=== PATIENT | male | born 1985 | race Caucasian/White ===

== ENCOUNTER 2019-11-09 12:10 | Emergency (ER) | payer MEDICAID ==
[~2019-11-09] VITALS: Ht 185.4 cm; Wt 131.8 kg
[2019-11-09 12:32] VITALS: BP 132/94
== END 2019-11-09 13:55 | disposition home or self-care (01) ==
LOC: ER 12:11
DX: F10.10 Alcohol abuse, uncomplicated (principal); R19.7 Diarrhea, unspecified; Z88.8 Allergy status to other drugs, medicaments and biological substances
CPT/HCPCS: 99281